=== PATIENT | female | born 1980 ===

== ENCOUNTER 2018-01-13 19:36 | Emergency (ER) | payer MEDICAID ==
[2018-01-13 19:36] VITALS: BMI 34.9
[2018-01-13 20:03] VITALS: BP 129/81; PULSE 105; RESP 18; TEMP 98.2; O2SAT 98
[2018-01-13] MEDS ORDERED: Amoxicillin-Clav 875-125 mg Tab PO STA (20:30)
[2018-01-13] MEDS ORDERED: Amoxicillin-Clav 875-125 mg Tab PO ONE (20:40)
--- NOTE | 2018-01-13 20:51 | ED PDOC ---
HPI: General Adult Time Seen by Provider: 01/13/18 20:27 Chief Complaint (Nursing): Dizziness/Lightheaded Chief Complaint (Provider): Dizziness/Lightheaded History Per: Patient History/Exam Limitations: no limitations Onset/Duration Of Symptoms: Days (x2) Additional Complaint(s): Patient is a 37 y/o female complaining of congestion with associated sinus pain and pressure as well as left ear pain, for the past x2 days. Patient reports feeling weak and has intermittent dizziness. Patient states that she is visiting from [place] and is not used to the cold. Additionally, her grand mother is in the ICU upstairs and is feeling overwhelmed; she believes that this is "making symptoms worse." Past Medical History Vital Signs: Last Vital Signs Temp 98.2 F 01/13/18 19:56 Pulse 105 H 01/13/18 19:56 Resp 18 01/13/18 19:56 BP 129/81 01/13/18 19:56 Pulse Ox 98 01/13/18 19:56 - Medical History PMH: Gastritis Denies: Chronic Kidney Disease - Surgical History Surgical History: Tonsillectomy, - Family History Family History: States: No Known Family Hx - Immunization History Hx Tetanus Toxoid Vaccination: No Hx Influenza Vaccination: No Hx Pneumococcal Vaccination: No - Home Medications Home Medications: Ambulatory Orders Medication Instructions Recorded Dicyclomine [Bentyl] 20 mg PO QID PRN #20 tab 09/01/17 Mag Carb/Aluminum Hydrox/Algin 20 ml PO PRN PRN 09/01/17 [Gaviscon Esrf 360 ml] Ranitidine HCl [Ranitidine 150] 150 mg PO HS 09/01/17 Fluticasone Propionate [Flonase] 1 spr NS BID #1 spr 01/13/18 Methylprednisolone [Medrol Dose 4 mg PO DAILY #21 mg 01/13/18 Pack (21 tabs)] - Allergies Allergies/Adverse Reactions: Allergies Allergy/AdvReac Type Severity Reaction Status Date / Time No Known Allergies Allergy Verified 09/01/17 20:42 Review of Systems ROS Statement: Except As Marked, All Systems Reviewed And Found Negative Constitutional: Positive for: Weakness ENT: Positive for: Ear Pain, Nose Congestion, Other (sinus pain and pressure) Neurological: Positive for: Dizziness Physical Exam - Reviewed Nursing Documentation Reviewed: Yes Vital Signs Reviewed: Yes - Physical Exam Appears: Positive for: Well, Non-toxic, No Acute Distress Head Exam: Positive for: ATRAUMATIC, NORMAL INSPECTION, NORMOCEPHALIC Skin: Positive for: Normal Color, Warm, DRY Eye Exam: Positive for: EOMI, Normal appearance, PERRL ENT: Positive for: TM Is/Are (Left TM is erythematous), Other (Maxillary sinus tenderness) Neck: Positive for: Normal, Painless ROM Cardiovascular/Chest: Positive for: Regular Rate, Rhythm. Negative for: Murmur Respiratory: Positive for: Normal Breath Sounds. Negative for: Respiratory Distress Gastrointestinal/Abdominal: Positive for: Normal Exam, Soft. Negative for: Tenderness, Distended, Guarding, Rebound Back: Positive for: Normal Inspection. Negative for: L CVA Tenderness, R CVA Tenderness, Vertebral Tenderness Extremity: Positive for: Normal ROM. Negative for: Pedal Edema, Deformity Neurologic/Psych: Positive for: Alert, Oriented. Negative for: Motor/Sensory Deficits - Laboratory Results Result Diagrams: 01/13/18 20:47 01/13/18 20:47 - ECG O2 Sat by Pulse Oximetry: 98 (RA) Pulse Ox Interpretation: Normal Medical Decision Making Medical Decision Making: Time: 2029 Impression: Initial Plan: --Labs ordered: CMP, TSH, EKG, CBC w/ diff --Patient given Amoxicillin 1 tab PO, Ibuprofen 600 mg PO --CXR ordered Labs resulted and reviewed with Pt who demonstrated full understanding Pt doing well on re-eval. asking to go home Pt educated on viral syndrome and demonstrated full understanding Scribe Attestation: Documented by Reyes Sosa, acting as a scribe for Brea Moise PA-C Provider Scribe Attestation: All medical record entries made by the Scribe were at my direction and personally dictated by me. I have reviewed the chart and agree that the record accurately reflects my personal performance of the history, physical exam, medical decision making, and the department course for this patient. I have also personally directed, reviewed, and agree with the discharge instructions and disposition. Disposition - Clinical Impression Clinical Impression: Viral syndrome, Sinusitis - Patient ED Disposition Is Patient to be Admitted: No - Disposition Disposition: Routine/Home Disposition Time: 22:25 Condition: STABLE Prescriptions: Fluticasone Propionate [Flonase] 1 spr NS BID #1 spr Methylprednisolone [Medrol Dose Pack (21 tabs)] 4 mg PO DAILY #21 mg Instructions: Viral Syndrome (DC), Sinusitis in Adults Forms: [facility] ([place])
[2018-01-13 20:57] LABS: BASO # 0.1 K/uL (0.0-0.2); BASO % 0.6 % (0.0-2.0); EOS # 0.1 K/uL (0.0-0.7); EOS % 1.1 % (0.0-4.0); HEMOGLOBIN 11.6 g/dL (12.0-16.0); LYMPH # 2.5 K/uL (1.0-4.3); LYMPH % 22.9 % (20.0-40.0); MEAN CELL VOLUME 78.9 fl (81.0-99.0); MEAN CORPUSCULAR HEMOGLOBIN 25.4 pg (27.0-31.0); MEAN CORPUSCULAR HGB CONC 32.2 g/dL (33.0-37.0); MEAN PLATELET VOLUME 10.8 fl (7.2-11.7); MONO # 0.8 K/uL (0.0-0.8); MONO % 7.1 % (0.0-10.0); NEUT # 7.6 K/uL (1.8-7.0); NEUT % 68.3 % (50.0-75.0); RBC 4.55 Mil/uL (3.80-5.20); RED CELL DISTRIBUTION WIDTH 17.1 % (11.5-14.5); WHITE BLOOD COUNT 11.1 K/uL (4.8-10.8)
[2018-01-13 21:05] LABS: ALB/GLOB RATIO 1.3 (1.0-2.1); ALBUMIN 4.3 g/dL (3.5-5.0); ALT/SGPT 21 U/L (9-52); AST/SGOT 15 U/L (14-36); BLOOD UREA NITROGEN 17 mg/dl (7-17); CALCIUM 9.3 mg/dL (8.4-10.2); GFR NON-AFRICAN AMERICAN > 60
--- NOTE | 2018-01-14 09:01 | RAD ---
Date of service: 01/13/2018 HISTORY: palpitations COMPARISON: No prior. TECHNIQUE: Chest PA and lateral FINDINGS: LUNGS: No active pulmonary disease. PLEURA: No significant pleural effusion identified. No pneumothorax apparent. CARDIOVASCULAR: No aortic atherosclerotic calcification present. Normal cardiac size. No pulmonary vascular congestion. OSSEOUS STRUCTURES: Scoliotic thoracic spine deformity noted. VISUALIZED UPPER ABDOMEN: Normal. OTHER FINDINGS: None. IMPRESSION: No acute cardiopulmonary disease appreciated.
== END 2018-01-13 22:20 | disposition home or self-care (01) ==
LOC: H.ER 19:36
DX: J32.9 Chronic sinusitis, unspecified (principal); B34.9 Viral infection, unspecified